=== PATIENT | female | born 1995 | race Caucasian/White ===

== ENCOUNTER 2020-10-12 14:46 | Emergency (ER) | payer BC, SELFPAY ==
[2020-10-12 14:48] VITALS: BP 146/89; PULSE 78; RESP 20; TEMP 36.7; O2SAT 100
--- NOTE | 2020-10-12 15:03 | PC.NURSE ---
Pt to ED with complaints of left upper dental pain starting 3 days ago. Pt states pain is now in entire left side of face and ear. Pt was seen at a [facility] clinic yesterday and started on Augmentin. No facial swelling noted.
--- NOTE | 2020-10-12 15:47 | ED.DENTAL ---
HPI - Dental/Oral General Chief complaint: Dental/Oral Stated complaint: toothache Time Seen by Provider: 10/12/20 14:50 Source: patient Mode of arrival: ambulatory Limitations: no limitations History of Present Illness HPI Narrative: Patient presents for evaluation of left upper dental pain for the last few days. Pain was initially intermittent but has become constant. She states current pain is 10/10 in severity, throbbing, with radiation into left side of the face. No fever, chills, trismus or problems handling secretions. She has alternated between tylenol and ibuprofen which has helped somewhat. She went to [facility] yesterday and was given a script for augmentin. She has taken two doses so far. She has an appointment with a dentist tomorrow. She states she has had a root canal on upper left side in past and upper right side. Related Data Allergies Allergy/AdvReac Type Severity Reaction Status Date / Time No Known Allergies Allergy Verified 10/12/20 14:52 Review of Systems Review of Systems: Narrative: CONSTITUTIONAL: Denies fever, chills, or sweats. EYES: Denies visual changes, redness, or discharge. ENT: Denies rhinorrhea, congestion, sore throat, or otalgia. Reports left upper dental pain with radiation into left side of the face CARDIOVASCULAR: Denies chest pain, palpitations, or edema. RESPIRATORY: Denies cough or dyspnea. GASTROINTESTINAL: Denies abdominal pain, nausea, vomiting, or diarrhea. GENITOURINARY: Denies dysuria or hematuria. SKIN: Denies rash or itching. MUSCULOSKELETAL: Denies back pain, joint pain, or myalgia. NEUROLOGIC: Denies headache, numbness, dizziness, or weakness. PSYCHIATRIC: Denies anxiety or depression. Exam Narrative: Exam Narrative: GENERAL: Well-appearing, well-nourished, and in no acute distress. HEAD: Normocephalic, atraumatic. EYES: PERRLA and EOMI. ENT: Nares clear, no rhinorrhea or epistaxis. Mucous membranes moist. Oropharynx without tonsillar hypertrophy exudate or other lesions. Bilateral TMs pearly jauregui nonbulging. Tenderness over tooth #14. There appears to be a fracture along posterior aspect of tooth #15, which I cannot visualize but am able to palpate. There is no visible or palpable abscess. No trismus. NECK: Supple. No adenopathy or masses. No carotid bruits or JVD CHEST: Clear to auscultation. No respiratory distress. No wheezes rales or rhonchi HEART: Regular rate and rhythm. No murmur heard. Normal peripheral pulses. ABDOMEN: Soft, nontender, nondistended, normal active bowel sounds. EXTREMITIES: Normal range of motion. No edema. SKIN: Warm, dry, no rash. NEURO: No focal deficits. Alert and oriented x3. PSYCH: Normal mood and affect. Course Course Emergency Course: This is a 25-year-old female with complaints of left-sided dental pain. She was seen at [facility] yesterday and was given a prescription for Augmentin which she is taking as directed. There does not appear to be a visible or palpable abscess on exam. She was advised to continue with Augmentin. She has an appointment with her dentist tomorrow. Pain is refractory to ibuprofen and Tylenol so will give her prescription for hydrocodone. She was advised to follow up with dentist tomorrow and return for any worsening symptoms. Pt in agreement with plan of care. Vital Signs Vital signs: Vital Signs Temperature 36.7 C 10/12/20 14:48 Pulse Rate 78 10/12/20 14:48 Respiratory Rate 20 10/12/20 14:48 Blood Pressure 146/89 H 10/12/20 14:48 Pulse Oximetry 100 10/12/20 14:48 Temperature 36.7 C 10/12/20 14:48 Pulse Rate 78 10/12/20 14:48 Respiratory Rate 20 10/12/20 14:48 Blood Pressure 146/89 H 10/12/20 14:48 Pulse Oximetry 100 10/12/20 14:48 MDM - Dental/Oral MDM Narrative Medical decision making narrative: Dental abscess versus dental decay versus tooth fracture versus gingivitis versus other Discharge Plan Discharge Clinical Impression: Pain, denta
== END 2020-10-12 16:25 | disposition home or self-care (01) ==
PROVIDERS: Emergency Provider Nurse Practitioner
DX: K03.81 Cracked tooth (principal)
CPT/HCPCS: 99283